=== PATIENT | male | born 1975 | race Caucasian/White ===

== ENCOUNTER 2019-05-16 17:34 | Emergency (ER) | payer MEDICAID ==
[~2019-05-16] VITALS: Ht 182.9 cm; Wt 73.0 kg
--- NOTE | 2019-05-16 17:47 | NUR ---
CALLED TO TRIAGE NIL
--- NOTE | 2019-05-16 17:57 | NUR ---
NIL X2
--- NOTE | 2019-05-16 18:14 | NUR ---
NIL X3
[2019-05-16 18:33] VITALS: BP 119/68
[2019-05-16] MEDS ORDERED: CEFTRIAXONE 1,000 MG ONE (19:06)
[2019-05-16] MEDS ORDERED: NEOSPORIN OINT. PKT 1 PACKET ONE (19:07)
--- NOTE | 2019-05-16 19:12 | NUR ---
MEDICATED PER MAR
[2019-05-16] MEDS ORDERED: HYDROcodone/APAP 5/325 TABLET PO ONE (19:16)
[2019-05-16] MEDS ORDERED: HYDROcodone/APAP 5/325 TABLET ONE (19:22)
[2019-05-16] MEDS ORDERED: CEFTRIAXONE 1,000 MG IM ONE (19:30)
== END 2019-05-16 20:16 ==
LOC: ED 19:42
DX: B35.3 Tinea pedis (principal); L03.116 Cellulitis of left lower limb; F17.200 Nicotine dependence, unspecified, uncomplicated; F15.10 Other stimulant abuse, uncomplicated; Z72.9 Problem related to lifestyle, unspecified
CPT/HCPCS: 96372; 99283; J0696

== ENCOUNTER 2019-05-17 05:23 | Emergency (ER) | payer MEDICAID ==
[~2019-05-17] VITALS: Ht 185.4 cm; Wt 85.0 kg
--- NOTE | 2019-05-17 05:56 | NUR ---
THIS IS A 43Y M THAT COMES IN W/ C/O WANTING TO KILL "GANG[employer] STALKERS." PT VERY SLEEPY, AROUSABLE TO TOUCH BUT FALLS BACK ASLEEP. PT AGGITATED AND DENIES DRUG USE. WHEN ASKED TO EXPLAIN WHAT SYMPTOMS HE IS HAVING, PT STS THEY HAVE BEEN FOLLOWING ME FOR A YEAR HOW DO YOU NOT KNOW WHO THEY ARE. MD AT BEDSIDE TO ASSESS PT AND DISCUSS POC. PT BELONGINGS SECURED IN LOCKER 2 LABELED BAGS. PT EDUCATED ON NEED FOR URINE SAMPLE. PT BECOMES AGGITATED STS "STOP SPEAKING TO ME IN THAT TONE OF VOICE YOU DON'T NEED TO BE TELLING ME WHAT THE FUCK TO DO, I JUST TOOK A PISS BEFORE I GOT HERE."
--- NOTE | 2019-05-17 06:28 | NUR ---
LABS DRAWN, PT STILL UNABLE TO PEE
[2019-05-17 06:33] LABS: BASOPHILS # (AUTO) 0.03 x10^3/uL (0-0.1); BASOPHILS % (AUTO) 0 % (0-1); EOSINOPHILS # (AUTO) 0.03 x10^3/uL (0-0.4); EOSINOPHILS % (AUTO) 0 % (1-7); LYMPHOCYTES # (AUTO) 1.82 x10^3/uL (1-3.4); LYMPHOCYTES % (AUTO) 16 % (22-44); MD NO; MEAN CORPUSCULAR HEMOGLOBIN 31.1 pg (27.5-34.5); MEAN CORPUSCULAR HGB CONC 33.6 g/dL (33.2-36.2); MEAN CORPUSCULAR VOLUME 92.6 fL (81-97); MEAN PLATELET VOLUME 7.9 fL (7.4-10.4); MONOCYTES # (AUTO) 0.97 x10^3/uL (0.2-0.8); MONOCYTES % (AUTO) 9 % (2-9); NEUTROPHILS # (AUTO) 8.39 x10^3/uL (1.8-6.8); NEUTROPHILS % (AUTO) 75 % (42-75); PLATELET COUNT 206 x10^3/uL (130-400); RED BLOOD COUNT 4.36 x10^6/uL (4.38-5.82); RED CELL DISTRIBUTION WIDTH 14.3 % (9.4-14.8)
[2019-05-17 06:45] LABS: ALBUMIN 3.4 g/dL (3.4-5.0); ANION GAP 7 mmol/L (5-15); CALCIUM 8.6 mg/dL (8.5-10.1); CHLORIDE 108 mmol/L (98-107); SALICYLATE LEVEL < 1.7 mg/dL (2.8-20.0)
--- NOTE | 2019-05-17 06:54 | NUR ---
REPORT TO ALEXIS FARMER
[2019-05-17 06:57] LABS: ALANINE AMINOTRANSFERASE 32 U/L (12-78); ALKALINE PHOSPHATASE 63 U/L (45-117); BILIRUBIN,TOTAL 1.1 mg/dL (0.2-1.0); CREATININE 0.94 mg/dL (0.7-1.3); TOTAL PROTEIN 7.4 g/dL (6.4-8.2)
--- NOTE | 2019-05-17 06:59 | NUR ---
Assumed c/o pt from MARLENY Garber. Pt is resting quietly w/ eyes closed at this time. Opens to V, reminded pt to provide urine sample when able.
--- NOTE | 2019-05-17 07:49 | NUR ---
Pt awakens to V again & asked to provide urine sample. States he is still unable to go & declines water.
--- NOTE | 2019-05-17 07:49 | NUR ---
Note jeffry in ED - 05/17/19 at 0813 by AMBER Pt to V again & asked to provide urine sample. States he is still unable to go & declines water.
[2019-05-17 07:50] VITALS: BP 106/66
--- NOTE | 2019-05-17 08:30 | NUR ---
Pt yelled- responded to room, states he did not yell, closed eyes immediately. Repeated to pt need for UA, continues to decline po fluid.
--- NOTE | 2019-05-17 10:50 | NUR ---
PT SLEEPING. NO NEEDS AT THIS TIME
--- NOTE | 2019-05-17 11:00 | NUR ---
PT GIVEN MEAL TRAY
--- NOTE | 2019-05-17 11:42 | NUR ---
PT REFUSING TO DC, AWARE SECURITY CALLED TO ASSIST W DC
== END 2019-05-17 12:07 | disposition home or self-care (01) ==
LOC: ED 06:44
DX: F15.951 Other stimulant use, unspecified with stimulant-induced psychotic disorder with hallucinations (principal); F15.950 Other stimulant use, unspecified with stimulant-induced psychotic disorder with delusions; G92 Toxic encephalopathy; Z72.9 Problem related to lifestyle, unspecified
CPT/HCPCS: 36415; 80053; 80307; 84443; 85025; 99283

== ENCOUNTER 2019-06-04 12:13 | Emergency (ER) | payer MEDICAID ==
[~2019-06-04] VITALS: Ht 190.5 cm; Wt 71.7 kg
[2019-06-04 12:14] VITALS: BP 118/75
--- NOTE | 2019-06-04 12:51 | NUR ---
Pt ambulated to room, refused gown, patient refused xray unless he was "given pain meds first." Pt pacing room, LEX Greco back at bedside discussed need for pt cooperation with lab and xray. Pt currently agreeing to xray. NAD. BRANHAM
[2019-06-04] MEDS ORDERED: NEOSPORIN OINT. PKT 1 PACKET ONE (13:09)
--- NOTE | 2019-06-04 13:09 | NUR ---
Pt became threatening when asked if he had any thoughts of harming himself or anyone else. Stated "He would use whatever necessary to get pain meds" also stated that hes gone through this process before and knows that "nurses love this kind of st." When asked to elaborate what he meant, pt denied thoughts of hurting himself or anyone else, also denied previous suicide attempts. WCTM.
--- NOTE | 2019-06-04 13:22 | NUR ---
ATTEMPTED TO CLEAN AND DRESS PT'S FINGER. PATIENT REFUSED ALL TREATMENTS AND TOLD STAFF TO LEAVE ROOM.
[2019-06-04 13:30] LABS: ALBUMIN 3.4 g/dL (3.4-5.0); ANION GAP 11 mmol/L (5-15); CALCIUM 8.4 mg/dL (8.5-10.1); CHLORIDE 101 mmol/L (98-107); CREATININE 0.85 mg/dL (0.7-1.3)
[2019-06-04] MEDS ORDERED: OXYcodone/APAP 5/325MG TABLET PO ONE (13:30)
[2019-06-04] MEDS ORDERED: OXYcodone/APAP 5/325MG TABLET ONE (13:33)
--- NOTE | 2019-06-04 13:35 | NUR ---
SECOND ATTEMPT TO CLEAN WENT SAME THE FIRST
--- NOTE | 2019-06-04 13:45 | NUR ---
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 Pt also complained that "percocet ain't gonna do shit". Pt declined to stay for labs to complete, departing ED with a steady gait.
== END 2019-06-04 14:10 | disposition home or self-care (01) ==
LOC: ED 14:00
DX: L03.012 Cellulitis of left finger (principal); Z90.49 Acquired absence of other specified parts of digestive tract
CPT/HCPCS: 36415; 80048; 82040; 99284

== ENCOUNTER 2019-06-12 21:59 | Inpatient (IN) | payer MEDICAID ==
[~2019-06-12] VITALS: Ht 188 cm; Wt 72.8 kg
--- NOTE | 2019-06-12 22:43 | NUR ---
Pt ambulatory to room. Pt reports 4-5days ago he pulled a yellow stinger out of his left pointer finger. Pt reports taking an antibiotic from some woman's purse. Pt's finger noted to have 2 areas of black discoloration, and a large area of moist skin that is white in color. Pt reports last meth use 1.5 weeks ago.
--- NOTE | 2019-06-12 22:59 | NUR ---
Lab and xray at bedside.
[2019-06-12 23:07] LABS: BASOPHILS # (AUTO) 0.02 x10^3/uL (0-0.1); BASOPHILS % (AUTO) 0 % (0-1); EOSINOPHILS # (AUTO) 0.15 x10^3/uL (0-0.4); EOSINOPHILS % (AUTO) 1 % (1-7); LYMPHOCYTES # (AUTO) 2.94 x10^3/uL (1-3.4); LYMPHOCYTES % (AUTO) 27 % (22-44); MD NO; MEAN CORPUSCULAR HEMOGLOBIN 30.3 pg (27.5-34.5); MEAN CORPUSCULAR VOLUME 91.9 fL (81-97); MEAN PLATELET VOLUME 7.1 fL (7.4-10.4); MONOCYTES # (AUTO) 1.21 x10^3/uL (0.2-0.8); MONOCYTES % (AUTO) 11 % (2-9); NEUTROPHILS # (AUTO) 6.77 x10^3/uL (1.8-6.8); NEUTROPHILS % (AUTO) 61 % (42-75); PLATELET COUNT 357 x10^3/uL (130-400); RED BLOOD COUNT 4.64 x10^6/uL (4.38-5.82); RED CELL DISTRIBUTION WIDTH 14.1 % (9.4-14.8)
[2019-06-12 23:20] LABS: ANION GAP 7 mmol/L (5-15); CALCIUM 9.2 mg/dL (8.5-10.1); CHLORIDE 115 mmol/L (98-107); CREATININE 1.08 mg/dL (0.7-1.3)
--- NOTE | 2019-06-12 23:29 | NUR ---
Report given to MARLENY Staples
[2019-06-12] MEDS ORDERED: VANCOMYCIN PER PHARMACY MC PRN (23:30)
[2019-06-12] MEDS ORDERED: AMPICILLIN/SULBACTAM 3 GM in SODIUM CHLORIDE 0.9% 100 ML IV ONE (23:30)
[2019-06-12] MEDS ORDERED: VANCOMYCIN 1,400 MG in SODIUM CHLORIDE 0.9% 250 ML IV ONE (23:30)
[2019-06-13] MEDS ORDERED: MORPHINE SULFATE 4 MG/ML, 1ML ONE (00:20)
[2019-06-13] MEDS ORDERED: ONDANSETRON 2MG/ML, 2ML ONE (00:20)
[2019-06-13] MEDS ORDERED: MORPHINE SULFATE 4 MG/ML, 1ML IVPush PRN ×2 (00:30→01:00)
[2019-06-13] MEDS ORDERED: ONDANSETRON 2MG/ML, 2ML IVPush ONE (00:30)
[2019-06-13] MEDS ORDERED: ONDANSETRON 2MG/ML, 2ML IVPush PRN ×2 (01:00→01:30)
--- NOTE | 2019-06-13 01:03 | NUR ---
Report given to Manuela FARMER
[2019-06-13] MEDS ORDERED: NS + 20MEQ KCL 1,000 ML IV SCH (01:05)
[2019-06-13] MEDS ORDERED: NICOTINE 14MG/24 HR PATCH.TD24 TD SCH (01:30)
[2019-06-13] MEDS ORDERED: AMPICILLIN/SULBACTAM 3 GM in SODIUM CHLORIDE 0.9% 100 ML IV SCH (01:30)
[2019-06-13] MEDS ORDERED: hydrALAzine 20 MG/ML, 1ML IVPush PRN (01:30)
[2019-06-13] MEDS ORDERED: VANCOMYCIN PER PHARMACY MC PRN (01:30)
[2019-06-13] MEDS ORDERED: BISACODYL 10 MG SUPP PR PRN (01:30)
[2019-06-13] MEDS ORDERED: POLYETHYLENE GLYCOL 17 GM PACKET PO PRN (01:30)
[2019-06-13] MEDS ORDERED: ACETAMINOPHEN 325 MG TABLET PO PRN (01:30)
[2019-06-13] MEDS ORDERED: ENOXAPARIN 40 MG/0.4 ML SQ SCH (01:30)
[2019-06-13] MEDS ORDERED: TRAZODONE 50MG TABLET PO PRN (01:30)
--- NOTE | 2019-06-13 01:31 | NUR ---
Break RN: Pt transferred to floor. At time of admit, pt alert and interactive.
[2019-06-13] MEDS ORDERED: PHARMACOKINETIC CONSULTATION MC ONE (02:00)
[2019-06-13] MEDS ORDERED: PHARMACOKINETIC MONITORING MC PRN (02:00)
[2019-06-13 02:07] VITALS: BP 101/64
[2019-06-13 02:34] LABS: HCT (SEDRATE) 42.6 % (39.2-51.8)
[2019-06-13] MEDS: HYDROmorphone 2 MG/ML, 1ML IVPush PRN ×4 (03:00→04:37)
[2019-06-13 07:13] VITALS: BP 108/66
[2019-06-13] MEDS ORDERED: FAMOTIDINE 20 MG TABLET PO SCH (09:00)
[2019-06-13] MEDS ORDERED: KETOROLAC 30 MG/1 ML IM PRN (10:30)
[2019-06-13] MEDS ORDERED: HYDROcodone/APAP 5/325 TABLET PO PRN (10:30)
[2019-06-13] MEDS ORDERED: VANCOMYCIN 1,400 MG in SODIUM CHLORIDE 0.9% 250 ML IV SCH (13:00)
== END 2019-06-13 10:45 | disposition left against medical advice (07) | DRG 558 ==
LOC: ED 23:38 → EDIP 06-13 01:48 → 3N 06-13 01:49
PROVIDERS: ADMIT Hospitalist; ATTEND Hospitalist
DX: M65.142 Other infective (teno)synovitis, left hand (principal); L03.012 Cellulitis of left finger; F15.90 Other stimulant use, unspecified, uncomplicated; Z90.49 Acquired absence of other specified parts of digestive tract; Z86.79 Personal history of other diseases of the circulatory system
CPT/HCPCS: 36415; 80048; 85025; 85651; 87040; G0378; J0295; J1170; J2405; J3370; J3480; J2270; J7050

== ENCOUNTER 2019-06-26 10:31 | Emergency (ER) | payer MEDICAID | END 2019-06-26 10:43 | disposition left against medical advice (07) | LOC: ED 10:37 | DX: M79.644 Pain in right finger(s) (principal); Z53.21 Procedure and treatment not carried out due to patient leaving prior to being seen by health care provider ==